=== PATIENT | male | born 1975 | race Caucasian/White ===

== ENCOUNTER 2019-07-15 11:20 | Inpatient (IN) | payer OTHER ==
[~2019-07-15] VITALS: Ht 172.7 cm; Wt 101.3 kg
[2019-07-15] MEDS ORDERED: CYCL10TA PO (11:26)
[2019-07-15] MEDS ORDERED: MORPHINE 4 MG/ML 1ML VIAL/SYRINGE (J2270) IV ONE (12:00)
--- NOTE | 2019-07-15 12:00 | REP ---
PA and lateral chest: There are no comparisons. The lung denney are clear. Cardiac size is normal. The barbi, mediastinum, skeletal structures are unremarkable. There is mild pleural thickening along the left lateral chest wall. This is nonspecific and could be chronic or acute. Impression: Pleural thickening along the left lateral chest wall, nonspecific, acute versus chronic. There are no comparisons. Otherwise, negative PA and lateral chest. Electronically Signed by Gabino Castro MD 07/15/2019 11:52 A
[2019-07-15 12:17] LABS: HEMATOCRIT 46.3 % (42.0-52.0); HEMOGLOBIN 15.5 g/dl (13.5-17.5); MEAN CORPUSCULAR HEMOGLOBIN 30.8 pg (27.0-33.0); MEAN CORPUSCULAR HGB CONC 33.5 g/dl (32.0-36.5); MEAN CORPUSCULAR VOLUME 91.9 fl (80.0-96.0); PLATELET COUNT, AUTOMATED 280 10^3/uL (150-450); RED BLOOD COUNT 5.04 10^6/uL (4.30-6.10); WHITE BLOOD COUNT 8.5 10^3/uL (4.0-10.0)
[2019-07-15 12:43] LABS: ALBUMIN 3.9 GM/DL (3.2-5.2); ALT/SGPT 26 U/L (12-78); BILIRUBIN,TOTAL 0.7 MG/DL (0.2-1.0); BLOOD UREA NITROGEN 16 MG/DL (7-18); CALCIUM LEVEL 9.3 MG/DL (8.5-10.1); CARBON DIOXIDE LEVEL 29 MEQ/L (21-32); CHLORIDE LEVEL 107 MEQ/L (98-107); CREATININE FOR GFR 0.95 MG/DL (0.70-1.30); GLOMERULAR FILTRATION RATE > 60.0 (>60); GLUCOSE, FASTING 91 MG/DL (70-100); POTASSIUM SERUM 4.6 MEQ/L (3.5-5.1); SODIUM LEVEL 139 MEQ/L (136-145); TOTAL PROTEIN 6.7 GM/DL (6.4-8.2)
[2019-07-15] MEDS ORDERED: ISOVUE-370 76% 100ML VIAL (Q9967) As Ordered ONE (12:50)
--- NOTE | 2019-07-15 13:27 | REP ---
CT of the chest without IV contrast for rib fractures: Comparison is the plain film study performed earlier today. There are nondisplaced fractures laterally in the left fourth, fifth, sixth, and seventh ribs. There is a tiny pneumothorax anteriorly to the left of the sternum. There is no hemothorax or pulmonary contusion. There is mild dependent atelectasis in the posterior inferior lung zones. There are no infiltrates. There are no masses or nodules. The unenhanced thoracic aorta is unremarkable. There is no mediastinal hematoma. The cardiac size is normal. There is mild pleural thickening laterally in the left hemithorax adjacent to the rib fractures. Upper abdomen. The visualized areas of the unenhanced liver, gallbladder, pancreas, spleen and renal upper poles are unremarkable. The adrenals are unremarkable. Impression: There are multiple nondisplaced rib fractures involving the 4th - 7th left ribs laterally. There is a tiny pneumothorax anteriorly on the left. There is a known hemothorax or pulmonary contusion. There is dependent atelectasis in the posterior lung. There is no clavicle, scapula, or sternal fracture. No thoracic vertebral body fracture. Electronically Signed by Gabino Castro MD 07/15/2019 01:18 P
--- NOTE | 2019-07-15 13:36 | REP ---
CT of the abdomen and pelvis with IV contrast, without bowel contrast for trauma: Studies performed contiguously with the chest CT this same date. Nondisplaced fractures of several left ribs laterally are again identified as detailed on the chest CT report. The hepatic parenchyma is homogeneous. There is no hepatic hematoma or laceration. Is a tiny hypodensity posteriorly in the right lobe measuring 7 ml, nonspecific but likely a cyst. The hepatic parenchyma is otherwise unremarkable. The gallbladder, pancreas are unremarkable. There are a few tiny hypodensities in the spleen, nonspecific, splenic cyst versus tiny splenic hematomas. There is no hemoperitoneum or pneumoperitoneum. The adrenals are unremarkable. The kidneys are unremarkable. There is no pararenal hematoma. The abdominal aorta is unremarkable. There is no periaortic hematoma. The bowel and mesentery are unremarkable. Pelvis: The appendix and terminal ileum are unremarkable. There is no hemoperitoneum. The bladder is unremarkable. The pelvic bowel loops are unremarkable. There are no vertebral fractures. No sacral fracture. No iliac fracture. No ratio fracture. No hip fracture. No pubic symphysis fracture. Impression: The patients known nondisplaced rib fractures are again identified. Tiny nonspecific hypodensity in the liver, likely a cyst. Several tiny and nonspecific hypodensities in the spleen, splenic cyst versus tiny hematomas. No hemoperitoneum or pneumoperitoneum. No other evidence of solid organ injury. No fractures. The abdominal aorta is unremarkable. Electronically Signed by Gabino Castro MD 07/15/2019 01:27 P
[2019-07-15] MEDS ORDERED: KETOROLAC 30 MG/ML VIAL (J1885) IV ONE (14:00)
[2019-07-15] MEDS ORDERED: THERTAB20 PO (14:57)
[2019-07-15] MEDS ORDERED: HYDROMORPHONE HCL 0.5 MG/ 0.5 ML SYRINGE (J1170 PER 1) IV PRN (17:45)
--- NOTE | 2019-07-15 18:04 | HPE ---
DATE OF ADMISSION: 07/15/2019 at approximately 5:15 p.m. CHIEF COMPLAINT: Status post ground-level fall by slipping on ice. 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 He was brought to the emergency room for evaluation with a chest x-ray, which was otherwise unremarkable. CT scan of his chest showed that he had multiple nondisplaced rib fractures involving the 4th-7th left ribs laterally with associated tiny pneumothorax anteriorly to the left and a possible hemothorax or pulmonary contusion also. He was treated with intravenous (IV) morphine and Toradol, which was unable to control his pain. Due to his elevated level of pain, he was admitted to the hospitalist service for further treatment and evaluation ALLERGIES: No known drug allergies. PAST MEDICAL HISTORY: None. PAST SURGICAL HISTORY: Notable for bilateral inguinal hernia repair. He has had a tonsillectomy. 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 Does not use any drugs, alcohol, or tobacco products. FAMILY HISTORY: Notable for his dad who had a heart attack as well as colon cancer. He has a fraternal grandfather who has pancreatic cancer, and maternal side associated with breast cancer. REVIEW OF SYSTEMS: All systems reviewed with the patient, otherwise negative except for what pertains to his acute illness. PHYSICAL EXAMINATION: The patient's temperature is 97.3, pulse is 78, respirations are 22, blood pressure is 136/82, oxygen saturation is 97% on room air. GENERAL: The patient is alert and oriented times three. He is in moderate to severe pain associated with his rib fracture. He is not hypoxic. He is not exhibiting any labored breathing. He is acyanotic. Head is atraumatic, normocephalic. His pupils are symmetric and react to light. Oropharynx is clear. NECK: Supple. LUNGS: Sounds are present without audible rales, wheezes, or rhonchi. HEART: S1, S2. He is normocardic without any audible murmurs, rubs, or gallops. ABDOMEN: Soft, nontender, nondistended. EXTREMITIES: Without any significant cyanosis, clubbing, or edema. RELEVANT LABORATORY DATA: Sodium 139, potassium 4.6, chloride 107, bicarbonate 29, BUN 16, creatinine 0.95. AST 22, ALT 26, alkaline phosphatase 64. White count 8.5, hemoglobin 15.5, hematocrit 46.3, platelet count 280. A chest x-ray showed no significant pathology. CT scan of the chest showed findings as described above, consisting of left rib fractures involving ribs 4-7 with a tiny area of pneumothorax and possible hemothorax versus lung contusion. IMPRESSION: Status post ground-level fall on ice with multiple left rib fractures and acute chest pain with small pneumothorax. PLAN: Patient will be admitted to an observation status. He will receive IV Dilaudid and Toradol for pain control, and we will repeat chest x-ray in the morning. Patient will be placed on sequential compression devices (SCDs).
[2019-07-15 19:59] LABS: HEMATOCRIT 46.7 % (42.0-52.0); HEMOGLOBIN 15.7 g/dl (13.5-17.5); MEAN CORPUSCULAR HEMOGLOBIN 30.8 pg (27.0-33.0); MEAN CORPUSCULAR HGB CONC 33.6 g/dl (32.0-36.5); MEAN CORPUSCULAR VOLUME 91.7 fl (80.0-96.0); PLATELET COUNT, AUTOMATED 291 10^3/uL (150-450); RED BLOOD COUNT 5.09 10^6/uL (4.30-6.10); WHITE BLOOD COUNT 8.5 10^3/uL (4.0-10.0)
[2019-07-15 20:26] LABS: BLOOD UREA NITROGEN 17 MG/DL (7-18); CALCIUM LEVEL 9.2 MG/DL (8.5-10.1); CARBON DIOXIDE LEVEL 32 MEQ/L (21-32); CHLORIDE LEVEL 107 MEQ/L (98-107); CREATININE FOR GFR 0.98 MG/DL (0.70-1.30); GLOMERULAR FILTRATION RATE > 60.0 (>60); GLUCOSE, FASTING 167 MG/DL (70-100); POTASSIUM SERUM 4.1 MEQ/L (3.5-5.1); SODIUM LEVEL 141 MEQ/L (136-145)
[2019-07-15] MEDS: KETOROLAC 30 MG/ML VIAL (J1885) IV SCH (20:43)
[2019-07-15] MEDS: HYDROMORPHONE HCL 0.5 MG/ 0.5 ML SYRINGE (J1170 PER 1) IV PRN (22:03)
[2019-07-15 23:00] VITALS: BP 112/70
[2019-07-16] VITALS (32 sets, daily range): BP systolic 104–130; BP diastolic 64–80; O2SAT 91–99
[2019-07-16] MEDS: HYDROMORPHONE HCL 0.5 MG/ 0.5 ML SYRINGE (J1170 PER 1) IV PRN ×3 (01:13→11:03)
[2019-07-16] MEDS: KETOROLAC 30 MG/ML VIAL (J1885) IV SCH ×4 (01:13→20:01)
[2019-07-16 08:09] LABS: HEMATOCRIT 45.3 % (42.0-52.0); HEMOGLOBIN 15.1 g/dl (13.5-17.5); MEAN CORPUSCULAR HEMOGLOBIN 30.9 pg (27.0-33.0); MEAN CORPUSCULAR HGB CONC 33.3 g/dl (32.0-36.5); MEAN CORPUSCULAR VOLUME 92.6 fl (80.0-96.0); PLATELET COUNT, AUTOMATED 269 10^3/uL (150-450); RED BLOOD COUNT 4.89 10^6/uL (4.30-6.10); WHITE BLOOD COUNT 7.5 10^3/uL (4.0-10.0)
--- NOTE | 2019-07-16 08:10 | REP ---
Portable chest x-ray: Single view. History: Followup pneumothorax. Comparison chest x-ray July 15, 2019. Findings: There is minimal pleural thickening along the left lateral chest wall. EKG monitoring electrodes are seen. Cardiomediastinal silhouette is unremarkable. There is no visible pneumothorax. Mild plate-like atelectasis is suspected in the left base behind the heart. Lung denney are otherwise clear. Electronically Signed by Kimo Loja MD 07/16/2019 08:01 A
[2019-07-16 08:38] LABS: BLOOD UREA NITROGEN 21 MG/DL (7-18); CALCIUM LEVEL 9.1 MG/DL (8.5-10.1); CARBON DIOXIDE LEVEL 31 MEQ/L (21-32); CHLORIDE LEVEL 107 MEQ/L (98-107); GLOMERULAR FILTRATION RATE > 60.0 (>60); GLUCOSE, FASTING 88 MG/DL (70-100); SODIUM LEVEL 140 MEQ/L (136-145)
[2019-07-16] MEDS ORDERED: ANEXSIA, NORCO 7.5MG/325MG TABLET(HYDROCODONE/APAP) PO PRN (10:00)
[2019-07-16] MEDS ORDERED: SENNA 8.6 MG TAB (SENOKOT) PO PRN (13:00)
--- NOTE | 2019-07-16 13:01 | IPNPDOC ---
Subjective Date Seen The patient was seen on 07/16/19. Subjective Chief Complaint/HPI Pain better, but still not controlled. No problems with shortness of breath. Using IS prn Objective Physical Examination General Exam: Positive: Alert, Moderate Distress Eye Exam: Negative: Sclera icteric Neck Exam: Positive: Supple Chest Exam: Positive: Clear to auscultation Heart Exam: Positive: Rate Normal Abdomen Exam: Positive: Normal bowel sounds Extremity Exam: Negative: Cyanosis Skin Exam: Negative: Rash Assessment /Plan Assessment # Status post ground-level fall on ice with multiple left rib fractures and acute chest pain with small pneumothorax - no PTX noted on repeat CXR - consult anesthesia for epidural nerve block, d/w Dr. Branham. - add norco 7.5 mg and senna bid prn constipation - change to inpatient - hopefully home in am once pain controlled. Plan/VTE VTE Prophylaxis Ordered?: No VTE Exclusion Mechanical Proph: Low Risk for VTE VTE Exclusion Pharmacological: At Low Risk for VTE VS, I&O, 24H, Fishbone Vital Signs/I&O Vital Signs Date Time Temp Pulse Resp B/P (MAP) Pulse Ox O2 Delivery O2 Flow Rate FiO2 07/16/19 12:00 97.2 66 18 130/80 (97) 92 Room Air I&O- Last 24 Hours up to 6 AM 07/16/19 05:59 Intake Total 120 ml Balance 120 ml Laboratory Data 24H LABS Laboratory Tests 2 07/15/19 19:50: Nucleated Red Blood Cells % (auto) 0.0, Anion Gap 2L, Glomerular Filtration Rate > 60.0, Calcium Level 9.2 07/16/19 07:44: Nucleated Red Blood Cells % (auto) 0.0, Anion Gap 2L, Glomerular Filtration Rate > 60.0, Calcium Level 9.1 CBC/BMP Laboratory Tests 07/15/19 19:50 07/16/19 07:44 ORQUIDEA ORDONEZ MD Jul 16, 2019 13:01
[2019-07-16] MEDS ORDERED: fentaNYL 100 MCG/2 ML INJECTION (J3010) As Ordered ONE (14:22)
[2019-07-16] MEDS ORDERED: MIDAZOLAM INJ 2 MG/2 ML VIAL (J2250) As Ordered ONE (14:22)
[2019-07-16] MEDS: MIDAZOLAM INJ 2 MG/2 ML VIAL (J2250) IV SCH ×3 (14:25→19:48)
[2019-07-16] MEDS: fentaNYL 100 MCG/2 ML INJECTION (J3010) IV SCH ×2 (14:25→19:48)
[2019-07-16] MEDS ORDERED: FENTANYL 2MCG/ML BUPIVACAINE 0.0625% NACL 250ML IV BAG As Ordered ONE (14:50)
[2019-07-16] MEDS ORDERED: NALOXONE INJ 0.4 MG/1 ML VIAL (J2310) IV PRN (15:00)
[2019-07-16] MEDS ORDERED: WALLBOXKEY XX PRN (15:00)
[2019-07-16] MEDS ORDERED: EPIDURAL/PCA KEYS XX PRN (15:00)
[2019-07-16] MEDS ORDERED: FENTANYL/BUPIVACAINE/NACL BAG 250 ML EPIDURAL SCH (15:00)
[2019-07-16] MEDS ORDERED: ONDANSETRON 4MG/2ML VIAL (J2405) IV PRN (15:00)
[2019-07-16] MEDS ORDERED: diphenhydrAMINE INJ 50MG/ML VIAL (J1200) IV PRN (15:00)
[2019-07-16] MEDS ORDERED: METOCLOPRAMIDE INJ 10MG/2ML VIAL (J2765) IV PRN (15:00)
[2019-07-17] VITALS (11 sets, daily range): BP systolic 118–135; BP diastolic 64–83; O2SAT 91–92
[2019-07-17] MEDS: KETOROLAC 30 MG/ML VIAL (J1885) IV SCH ×3 (03:16→14:51)
--- NOTE | 2019-07-17 08:10 | REP ---
PA and lateral chest: Comparison is the portable chest of 07/16/2019. There is no visible pneumothorax on plain films. There has been interval placement of an epidural catheter. There is a focal left lower lobe infiltrate. There is mild pleural thickening along the left lateral chest wall. Right lung is clear. Cardiac size is normal. Impression: Left lower lobe infiltrate. Interval placement of an epidural catheter. No visible pneumothorax on plain films. Mild pleural thickening along the left lateral chest wall, unchanged. Electronically Signed by Gabino Castro MD 07/17/2019 08:02 A
[2019-07-17] MEDS ORDERED: AZITHROMYCIN 250 MG TAB PO ONE (09:00)
[2019-07-17] MEDS ORDERED: cefTRIAXone SOD 1 GM in D5W MINI-BAG PLUS 50 ML IV ONE (09:00)
--- NOTE | 2019-07-17 10:35 | IPNPDOC ---
Subjective Date Seen The patient was seen on 07/17/19. Subjective Chief Complaint/HPI Doing great after epidural, pain is controlled. No fever, no sob. Objective Physical Examination General Exam: Positive: Alert, No Acute Distress Eye Exam: Negative: Sclera icteric ENT Exam: Positive: Atraumatic Neck Exam: Positive: Supple Chest Exam: Positive: Rales (LLL) Heart Exam: Positive: Rate Normal Abdomen Exam: Positive: Normal bowel sounds Extremity Exam: Negative: Cyanosis Skin Exam: Negative: Rash Neuro Exam: Positive: Normal Speech Psych Exam: Positive: Mental status NL, Mood NL Assessment /Plan Assessment # Status post ground-level fall on ice with multiple left rib fractures and acute chest pain with small pneumothorax noted on CT # LLL infiltrate noted on 07/16 cxr - no PTX noted on serial CXRs - s/p epidural nerve block, can start wean - norco 7.5 mg and senna bid prn constipation - Iv rocephin + zithromax x 1 today, then for 6 more days - home later today once off epidural - IS prn Plan/VTE VTE Prophylaxis Ordered?: No (epidural, and ambulatory) VTE Exclusion Mechanical Proph: Low Risk for VTE VTE Exclusion Pharmacological: At Low Risk for VTE VS, I&O, 24H, Fishbone Vital Signs/I&O Vital Signs Date Time Temp Pulse Resp B/P (MAP) Pulse Ox O2 Delivery O2 Flow Rate FiO2 07/17/19 08:15 97.6 69 18 118/78 (91) 96 Room Air 07/16/19 14:35 2 I&O- Last 24 Hours up to 6 AM 07/17/19 06:00 Intake Total 1320 ml Output Total 300 ml Balance 1020 ml ORQUIDEA ORDONEZ MD Jul 17, 2019 10:35
[2019-07-17] MEDS ORDERED: CEFD300C PO (15:19)
[2019-07-17] MEDS ORDERED: HYDR-4514 PO ×3 (15:19→16:57)
[2019-07-17] MEDS ORDERED: MOBI4TAB PO ×3 (15:19→16:57)
[2019-07-17] MEDS ORDERED: SENN18TA PO ×3 (15:19→16:57)
[2019-07-17] MEDS ORDERED: CEFD300CAP PO ×2 (16:35→16:57)
--- NOTE | 2019-07-18 19:39 | DSES ---
DATE OF ADMISSION: 07/16/2019 DATE OF DISCHARGE: 07/17/2019 DISCHARGE DIAGNOSES: 1. Status post ground level fall causing multiple left rib fractures. 2. Acute chest pain secondary to fracture of ribs 4 through 7, nondisplaced. 3. Left lower lobe infiltrate noted on serial chest x-ray. PROCEDURES PERFORMED DURING THIS HOSPITALIZATION: Placement of an epidural for pain control. CONSULTANTS ON THE CASE: Dr. Branham of anesthesia. DISPOSITION: The patient is discharged home with instructions to return to work on 07/25/2019. He is to take antibiotics as prescribed. He is to continue using meloxicam and Percocet as needed for pain control. LABORATORIES PENDING AT THE TIME OF DISCHARGE: None. DISCHARGE INSTRUCTIONS: The patient is instructed to be off of work for 1 week, I have given a work absence excuse. He has also been provided a prescription for his antibiotic and antiinflammatory and pain medications. He is instructed that should he develop a fever, worsening shortness of breath or increased pain that he is to report to his nearest provider or facility for further evaluation. CONDITION ON DISCHARGE: Improved from admission with adequate pain control. RELEVANT LABORATORIES DURING HOSPITALIZATION: White blood cell count 7.5, hemoglobin 15.1, hematocrit 45.3, platelet count 269,000. Sodium 140, potassium 4, chloride 107, bicarbonate 31, anion gap 2, BUN 21, creatinine 0.9, calcium 9.1, AST 22, ALT 26, alkaline phosphatase 64. RELEVANT IMAGING STUDIES: Serial chest x-ray failed to show any evidence of pneumothorax. His ultimate x-ray showed that he had developed a left lower lobe infiltrate and placement of epidural catheter. No visible pneumothorax on plain films. Mild pleural thickening along the left lateral chest wall, unchanged from previous. Please reference the individual reports of the serial chest x-rays for details. CT scan of the chest without IV contrast showed multiple nondisplaced rib fractures involving the 4th through 7th left ribs laterally. There is a tiny pneumothorax anteriorly on the left. There is a known hemothorax or pulmonary contusion. There is dependent atelectasis in the posterior lung. There are no clavicle, scapular or sternal fractures. No thoracic vertebral body fracture. CT of the abdomen and pelvis with intravenous contrast, please reference full report for details, this showed no evidence of intraabdominal process. 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 He developed acute pain and was brought to the emergency room for evaluation. Serial chest x-rays confirmed that he had multiple left lateral nondisplaced rib fractures. A CT of the chest without intravenous contrast was obtained, which showed that he had a small tiny pneumothorax. He was admitted to the hospital medicine service. He was treated with intravenous Dilaudid, as well as Toradol. Serial laboratories were checked, which showed stability in his hemoglobin levels, as well as his renal function. Serial chest x-rays were followed throughout the hospitalization and there was no evidence of any evolving pneumothorax. Clinically, the patient's pain was not adequately controlled with intravenous medications. Anesthesia was consulted, who placed an epidural for pain analgesia. This was accomplished without complications. With the epidural, the patient's pain was considerably controlled. He was transitioned to oral. Chest x-ray done today on the day of discharge did not show any evidence of pneumothorax, along with the three previous chest x-rays. His epidural has been slowly weaned off and was removed by anesthesia service prior to discharge. The chest x-ray showed a left lower infiltrate and he was treated with intravenous Rocephin and Zithromax and transitioned to oral Cefdinir and was discharged home in stable condition. A total of 30 minutes was spent completing all discharge paperwork.
== END 2019-07-17 17:30 | disposition home or self-care (01) | DRG 200 ==
LOC: M ED 11:20 → M ED INP 11:21 → ENRESERV 21:40 → M PCU 22:25 → OBSVTOIN 07-16 10:13
PROVIDERS: ADMIT Internal Medicine; ATTEND Internal Medicine
PROC: 3E0R3NZ Introduction of Analgesics, Hypnotics, Sedatives into Spinal Canal, Percutaneous Approach (ICD-10-PCS; principal; 2019-07-16)
DX: S27.0XXA Traumatic pneumothorax, initial encounter (principal); S22.42XA Multiple fractures of ribs, left side, initial encounter for closed fracture; W00.9XXA Unspecified fall due to ice and snow, initial encounter; Y92.009 Unspecified place in unspecified non-institutional (private) residence as the place of occurrence of the external cause; Y99.8 Other external cause status

== ENCOUNTER → 2021-01-10 | Outpatient (CLI) | payer OTHER ==
[~2021-01-10] MED LIST: CEFD300C PO; CEFD300CAP PO; CYCL-707 PO; HYDR-4514 PO; MOBI4TAB PO; PROHANCE 279.3MG/ML 15ML VIAL As Ordered ONE; PROHANCE 279.3MG/ML 5ML VIAL As Ordered ONE; SENN18TA PO; THERTAB21 PO
--- NOTE | 2021-01-11 12:25 | REPVR ---
PROCEDURE INFORMATION: Exam: MR Head Without and With Contrast; Internal Auditory Canals Exam date and time: 01/10/2021 3:28 PM Age: 45 years old Clinical indication: Other: Hearing loss TECHNIQUE: Imaging protocol: MR of the head without and with intravenous contrast. Exam focused on the internal auditory canals. Contrast material: PROHANCE; Contrast volume: 17 ml; Contrast route: INTRAVENOUS (IV); COMPARISON: No relevant prior studies available. FINDINGS: Brain: There is no acute intracranial hemorrhage, cerebral edema, or midline shift. No restricted diffusion is present to suggest acute infarction. No enhancing lesions were identified after the administration of contrast. Ventricles: No hydrocephalus. Mastoid air cells: Unremarkable. No effusions. Internal auditory canals: The bilateral inner ear structures appear unremarkable. The internal auditory canals are within normal limits. The bilateral seventh and eighth nerves are unremarkable. No cerebellopontine angle mass is present. Bones/joints: Unremarkable. IMPRESSION: Normal internal auditory canals. Electronically signed by: Oscar Coronado On 01/11/2021 12:24:41 PM
== END ==
LOC: M RAD 14:24
PROVIDERS: ATTEND Otolaryngology
DX: H91.91 Unspecified hearing loss, right ear (principal)